=== PATIENT | female | born 1960 | race Caucasian/White ===

== ENCOUNTER → 2017-10-07 | Outpatient (CLI) | payer SELFPAY ==
[2017-10-07 18:10] LABS: BASOPHILS ABSOLUTE AUTO 0.04 K/mm3 (0.00-0.23); BASOPHILS PERCENT AUTO 1 % (0-2); EOSINOPHILS ABSOLUTE AUTO 0.31 K/mm3 (0.00-0.68); EOSINOPHILS PERCENT AUTO 5 % (0-6); Hematocrit 43.2 % (33.0-51.0); Hemoglobin 14.9 g/dL (11.5-16.0); IMMATURE GRAN ABSOLUTE AUTO 0.01 K/mm3 (0.00-0.10); IMMATURE GRAN PERCENT AUTO 0 % (0-1); LYMPHOCYTES ABSOLUTE AUTO 2.86 K/mm3 (0.84-5.20); LYMPHOCYTES PERCENT AUTO 49 % (21-46); MONOCYTES ABSOLUTE AUTO 0.46 K/mm3 (0.16-1.47); MONOCYTES PERCENT AUTO 8 % (4-13); Mean Corpuscular HGB 32.3 pg (26.0-34.0); Mean Corpuscular HGB Conc 34.5 g/dL (31.5-36.5); Mean Corpuscular Volume 94 fL (80-100); NEUTROPHILS ABSOLUTE AUTO 2.17 K/mm3 (1.96-9.15); NEUTROPHILS PERCENT AUTO 37 % (41-73); Platelet Count 212 K/mm3 (150-400); RDW Coefficient Variation 13.8 % (11.7-14.2); RDW Standard Deviation 47.4 fL (35.1-46.3); Red Blood Cell Count 4.62 M/mm3 (3.80-5.20); White Blood Cell Count 5.85 K/mm3 (4.00-11.30)
[2017-10-07 19:04] LABS: Alanine Aminotransfer (ALT/SGP 81 U/L (12-78); Albumin, Blood 3.7 g/dL (3.4-5.0); Albumin/Globulin Ratio 1.1 (0.8-1.8); Alk Phos 125 U/L (50-136); Anion Gap 10 mmol/L (6-16); Aspartate Aminotrans (AST/SGOT 51 U/L (12-37); Bilirubin, Total 0.3 mg/dL (0.1-1.0); Blood Urea Nitrogen 15 mg/dL (8-24); Bun/Creatinine Ratio 33.8 (12.0-20.0); CHOL/HDL RATIO 3.3; CO2, Blood 25 mmol/L (21-32); Calcium, Blood 9.4 mg/dL (8.5-10.1); Chloride, Blood 104 mmol/L (98-108); Cholesterol 226 mg/dL (50-200); Creatinine, Blood 0.44 mg/dL (0.40-1.00); Globulin, Blood 3.4 g/dL (2.2-4.0); Glomerular Filtration Rate >60 (60-); Glucose, Blood 91 mg/dL (70-99); HDL Cholesterol 69 mg/dL (>39); LDL/HDL RATIO 1.9; Low Density Lipoprotein Chol 129 mg/dL (0-110); Potassium, Blood 4.6 mmol/L (3.5-5.5); Sodium, Blood 139 mmol/L (136-145); Total Protein, Blood 7.1 g/dL (6.4-8.2); Triglycerides 141 mg/dL (30-160); Very Low Density Lipoprot Chol 28 mg/dL (6-32)
== END ==
LOC: LAB 10:47
PROVIDERS: Nurse Practitioner Adult Health
DX: I10 Essential (primary) hypertension (principal); R56.9 Unspecified convulsions
CPT/HCPCS: 80053; 80061; 80185; 85025

== ENCOUNTER → 2018-04-07 | Outpatient (CLI) | payer OTHER ==
[2018-04-07 18:03] LABS: BASOPHILS ABSOLUTE AUTO 0.06 K/mm3 (0.00-0.23); BASOPHILS PERCENT AUTO 1 % (0-2); EOSINOPHILS PERCENT AUTO 5 % (0-6); Hematocrit 44.7 % (33.0-51.0); Hemoglobin 14.9 g/dL (11.5-16.0); IMMATURE GRAN ABSOLUTE AUTO 0.03 K/mm3 (0.00-0.10); IMMATURE GRAN PERCENT AUTO 1 % (0-1); LYMPHOCYTES ABSOLUTE AUTO 2.49 K/mm3 (0.84-5.20); LYMPHOCYTES PERCENT AUTO 38 % (21-46); MONOCYTES ABSOLUTE AUTO 0.57 K/mm3 (0.16-1.47); MONOCYTES PERCENT AUTO 9 % (4-13); Mean Corpuscular HGB 31.5 pg (26.0-34.0); Mean Corpuscular HGB Conc 33.3 g/dL (31.5-36.5); Mean Corpuscular Volume 95 fL (80-100); Mean Platelet Volume 10.7 fL (9.1-12.4); NEUTROPHILS ABSOLUTE AUTO 3.06 K/mm3 (1.96-9.15); NEUTROPHILS PERCENT AUTO 47 % (41-73); Platelet Count 293 K/mm3 (150-400); RDW Coefficient Variation 14.4 % (11.7-14.2); RDW Standard Deviation 50.1 fL (35.1-46.3); Red Blood Cell Count 4.73 M/mm3 (3.80-5.20); White Blood Cell Count 6.51 K/mm3 (4.00-11.30)
[2018-04-07 18:54] LABS: Alanine Aminotransfer (ALT/SGP 33 U/L (12-78); Albumin, Blood 3.9 g/dL (3.4-5.0); Albumin/Globulin Ratio 1.2 (0.8-1.8); Alk Phos 119 U/L (50-136); Anion Gap 7 mmol/L (6-16); Aspartate Aminotrans (AST/SGOT 19 U/L (12-37); Bilirubin, Total 0.3 mg/dL (0.1-1.0); Blood Urea Nitrogen 15 mg/dL (8-24); Bun/Creatinine Ratio 29.1 (12.0-20.0); CHOL/HDL RATIO 2.5; CO2, Blood 28 mmol/L (21-32); Calcium, Blood 9.3 mg/dL (8.5-10.1); Chloride, Blood 106 mmol/L (98-108); Cholesterol 219 mg/dL (50-200); Creatinine, Blood 0.52 mg/dL (0.40-1.00); Free Thyroxine 0.72 ng/dL (0.70-1.60); Globulin, Blood 3.2 g/dL (2.2-4.0); Glomerular Filtration Rate >60 (60-); Glucose, Blood 102 mg/dL (70-99); HDL Cholesterol 86 mg/dL (>39); LDL/HDL RATIO 1.4; Low Density Lipoprotein Chol 120 mg/dL (0-110); Potassium, Blood 5.1 mmol/L (3.5-5.5); Sodium, Blood 141 mmol/L (136-145); Thyroid Stimulating Hormone 0.492 uIU/mL (0.360-4.800); Total Protein, Blood 7.1 g/dL (6.4-8.2); Triglycerides 65 mg/dL (30-160); Very Low Density Lipoprot Chol 13 mg/dL (6-32)
== END | disposition home or self-care (01) ==
LOC: LAB 17:49 → LAB SHORT 17:49
PROVIDERS: Nurse Practitioner Adult Health
DX: R56.9 Unspecified convulsions (principal); R94.5 Abnormal results of liver function studies; I10 Essential (primary) hypertension
CPT/HCPCS: 80053; 80061; 84439; 84443; 85025

== ENCOUNTER → 2019-06-03 | Outpatient (CLI) | payer OTHER ==
[~2019-06-03] MED LIST: MICROZIDE12.5 MG PO; PHENY100ER PO; Prinivil10 MG PO
[2019-06-03 18:34] LABS: BASOPHILS ABSOLUTE AUTO 0.06 K/mm3 (0.00-0.23); BASOPHILS PERCENT AUTO 1 % (0-2); EOSINOPHILS ABSOLUTE AUTO 0.22 K/mm3 (0.00-0.68); EOSINOPHILS PERCENT AUTO 3 % (0-6); Hematocrit 41.6 % (33.0-51.0); Hemoglobin 14.1 g/dL (11.5-16.0); IMMATURE GRAN ABSOLUTE AUTO 0.02 K/mm3 (0.00-0.10); IMMATURE GRAN PERCENT AUTO 0 % (0-1); LYMPHOCYTES ABSOLUTE AUTO 2.43 K/mm3 (0.84-5.20); LYMPHOCYTES PERCENT AUTO 35 % (21-46); MONOCYTES ABSOLUTE AUTO 0.51 K/mm3 (0.16-1.47); MONOCYTES PERCENT AUTO 7 % (4-13); Mean Corpuscular HGB 32.5 pg (26.0-34.0); Mean Corpuscular HGB Conc 33.9 g/dL (31.5-36.5); Mean Corpuscular Volume 96 fL (80-100); Mean Platelet Volume 10.4 fL (9.1-12.4); NEUTROPHILS ABSOLUTE AUTO 3.69 K/mm3 (1.96-9.15); NEUTROPHILS PERCENT AUTO 53 % (41-73); Platelet Count 394 K/mm3 (150-400); RDW Coefficient Variation 14.4 % (11.7-14.2); RDW Standard Deviation 49.9 fL (35.1-46.3); Red Blood Cell Count 4.34 M/mm3 (3.80-5.20); White Blood Cell Count 6.93 K/mm3 (4.00-11.30)
[2019-06-03 19:25] LABS: Alanine Aminotransfer (ALT/SGP 33 U/L (12-78); Albumin, Blood 3.8 g/dL (3.4-5.0); Albumin/Globulin Ratio 1.1 (0.8-1.8); Alk Phos 118 U/L (50-136); Anion Gap 4 mmol/L (6-16); Aspartate Aminotrans (AST/SGOT 22 U/L (12-37); Bilirubin, Total 0.3 mg/dL (0.1-1.0); Blood Urea Nitrogen 8 mg/dL (8-24); Bun/Creatinine Ratio 17.7 (12.0-20.0); CO2, Blood 29 mmol/L (21-32); Chloride, Blood 105 mmol/L (98-108); Creatinine, Blood 0.45 mg/dL (0.40-1.00); Dilantin (Phenytoin), Total 20.2 ug/mL (10.0-20.0); Globulin, Blood 3.5 g/dL (2.2-4.0); Glomerular Filtration Rate >60 (60-); Glucose, Blood 90 mg/dL (70-99); Sodium, Blood 138 mmol/L (136-145); Total Protein, Blood 7.3 g/dL (6.4-8.2)
== END | disposition home or self-care (01) ==
LOC: LAB SHORT 11:36 → LAB 11:36
PROVIDERS: Nurse Practitioner Family
DX: G40.909 Epilepsy, unspecified, not intractable, without status epilepticus (principal); I10 Essential (primary) hypertension
CPT/HCPCS: 80053; 80185; 85025

== ENCOUNTER 2019-07-15 11:34 | Day surgery (SDC) | payer OTHER ==
[~2019-07-15] VITALS: Ht 160 cm; Wt 65.7 kg
== END 2019-07-15 13:36 | disposition home or self-care (01) ==
LOC: ORSCSDS 11:34
PROVIDERS: Internal Medicine Gastroenterology
PROC: 0DBN8ZX Excision of Sigmoid Colon, Via Natural or Artificial Opening Endoscopic, Diagnostic (ICD-10-PCS; principal; 2019-07-15 13:15)
PROC: 0DBM8ZX Excision of Descending Colon, Via Natural or Artificial Opening Endoscopic, Diagnostic (ICD-10-PCS; principal; 2019-07-15 13:15)
PROC: 0D5K8ZZ Destruction of Ascending Colon, Via Natural or Artificial Opening Endoscopic (ICD-10-PCS; principal; 2019-07-15 13:15)
PROC: 0DBK8ZX Excision of Ascending Colon, Via Natural or Artificial Opening Endoscopic, Diagnostic (ICD-10-PCS; principal; 2019-07-15 13:15)
DX: R19.5 Other fecal abnormalities (principal); D12.2 Benign neoplasm of ascending colon; K63.5 Polyp of colon; K62.1 Rectal polyp; K57.30 Diverticulosis of large intestine without perforation or abscess without bleeding; Q27.33 Arteriovenous malformation of digestive system vessel; I10 Essential (primary) hypertension; F17.210 Nicotine dependence, cigarettes, uncomplicated; G40.409 Other generalized epilepsy and epileptic syndromes, not intractable, without status epilepticus; Z79.899 Other long term (current) drug therapy
CPT/HCPCS: 88305; J2704; J7120

== ENCOUNTER 2019-08-09 14:16 | Inpatient (IN) | payer OTHER ==
[~2019-08-09] VITALS: Ht 160 cm; Wt 65.2 kg
[2019-08-09 14:58] LABS: BASOPHILS ABSOLUTE AUTO 0.06 K/mm3 (0.00-0.23); BASOPHILS PERCENT AUTO 1 % (0-2); EOSINOPHILS ABSOLUTE AUTO 0.39 K/mm3 (0.00-0.68); EOSINOPHILS PERCENT AUTO 5 % (0-6); Hematocrit 44.6 % (33.0-51.0); Hemoglobin 15.3 g/dL (11.5-16.0); IMMATURE GRAN ABSOLUTE AUTO 0.04 K/mm3 (0.00-0.10); IMMATURE GRAN PERCENT AUTO 1 % (0-1); LYMPHOCYTES ABSOLUTE AUTO 2.29 K/mm3 (0.84-5.20); LYMPHOCYTES PERCENT AUTO 27 % (21-46); MONOCYTES ABSOLUTE AUTO 0.82 K/mm3 (0.16-1.47); MONOCYTES PERCENT AUTO 10 % (4-13); Mean Corpuscular HGB 32.6 pg (26.0-34.0); Mean Corpuscular HGB Conc 34.3 g/dL (31.5-36.5); Mean Corpuscular Volume 95 fL (80-100); NEUTROPHILS ABSOLUTE AUTO 5.03 K/mm3 (1.96-9.15); NEUTROPHILS PERCENT AUTO 58 % (41-73); Platelet Count 239 K/mm3 (150-400); RDW Coefficient Variation 13.3 % (11.7-14.2); RDW Standard Deviation 47.1 fL (35.1-46.3); White Blood Cell Count 8.63 K/mm3 (4.00-11.30)
[2019-08-09 15:16] LABS: Alanine Aminotransfer (ALT/SGP 32 U/L (12-78); Albumin, Blood 3.7 g/dL (3.4-5.0); Alk Phos 136 U/L (50-136); Anion Gap 5 mmol/L (6-16); Aspartate Aminotrans (AST/SGOT 19 U/L (12-37); Bilirubin, Total 0.3 mg/dL (0.1-1.0); Blood Urea Nitrogen 12 mg/dL (8-24); Bun/Creatinine Ratio 22.7 (12.0-20.0); CO2, Blood 29 mmol/L (21-32); Chloride, Blood 105 mmol/L (98-108); Creatinine, Blood 0.53 mg/dL (0.40-1.00); Ethanol (Alcohol), Blood, Med <3 mg/dL; Globulin, Blood 3.8 g/dL (2.2-4.0); Glomerular Filtration Rate >60 (60-); Glucose, Blood 116 mg/dL (70-99); Potassium, Blood 3.7 mmol/L (3.5-5.5); Sodium, Blood 139 mmol/L (136-145); Total Protein, Blood 7.5 g/dL (6.4-8.2)
--- NOTE | 2019-08-10 04:15 | NUR ---
SHIFT SUMMARY ED ADMIT @ 1930. PT WAS AT HOME AND FAMILY STARTED TO NOTICE FACIAL DROOPING AND SLURRED SPEECH SINCE SATURDAY. CT SHOWED PATCHY SUBACUTE INFARCTS BUT IT HAD BEEN TOO LONG FOR TPA, TREATING W/ASPIRIN. AOX3, STRUGGLES WITH TIME/DATE. LS CLEAR, DENIES SOB. NO C/O NAUSEA OR PAIN. NO SKIN ISSUES. L ARM AND LEG ARE WEAKER. L SIDE FACIAL DROOP. SPEECH SLURRED. 2 ASSIST TO BSC. TELE SR 80. R AC IS SL. HX OF EPILEPSY, LAST SEIZURE SOMETIME IN THE 'S. BEDALARM. BP 200/98 IN ED, PRN HYDRALAZINE GIVEN RIGHT BEFORE BRINGING HER TO THE FLOOR. 193/93 ON ADMISSION. RECHECKED AT 0100 AND BP WAS 132/95. PT SLEPT ALMOST THE WHOLE NIGHT.
[2019-08-10 04:48] LABS: CHOL/HDL RATIO 2.9; Cholesterol 227 mg/dL (50-200); HDL Cholesterol 79 mg/dL (>39); LDL/HDL RATIO 1.4; Low Density Lipoprotein Chol 113 mg/dL (0-110); Triglycerides 174 mg/dL (30-160); Very Low Density Lipoprot Chol 34 mg/dL (6-32)
--- NOTE | 2019-08-10 09:16 | NUR ---
Echocardiogram using 18.0ml of agitated saline contrast performed.
--- NOTE | 2019-08-10 18:27 | NUR ---
PT ALERT AND ORIENTED THIS SHIFT. PT CONTINUES TO HAVE LEFT SIDED WEAKNESS. PT FORGETS TO USE HER CALL LIGHT PERIODICALLY. PT HAD VISITORS IN THE ROOM FOR MUCH OF THIS SHIFT. PT CURRENTLY SITTING IN ROOM WATCHING TELEVISION.
--- NOTE | 2019-08-11 02:35 | NUR ---
Pt called SUPERVISOR [employer] to use the bathroom. When I arrived to the room, pt had to urinate very badly, but she sat up, I helped her to dangle her legs, I asked if she felt dizzy or unsteady, she replied, "no I feel ok", so I asked her if she could stand, she said, "yes, I can", so with some assistance from me she stood up, she was worried about the TELE monitor so I told her it would be ok to sit on the bed while she used the comode, she took a step and turned for the potty, she was slightly weak on her left side, but got to the bedside comode without difficulty, I noticed a spot of stool in her brief. I told her I would change her brief and wipe her bum when she was done. She urinated and wiped herself. She asked for some foam to wash her hands, so I retrieved her a squirt of foam hand report clerk. She washed her hands. I asked if the patient felt steady to stand for a moment or wanted to lay down for me to make sure her bum was clean, she wanted to stand up. So she started to stand, I used one wipe to wipe the stool smear, upon getting another wipe the patient began to pivot I went from her Right side to in front of her to help support her she pivoted herself towards the bed and slid down the side of the bed. She gently was lowered to the floor. I called for my RN Rosalina, but didn't know her last name so Brian wasn't helpful, I called for Emely the RN sitting outside the room on a computer and she came in to help, Rosalina also arrived to help with the patient. We put a gait belt on the patient, got her up and into bed. The patient stated that she was ok and nothing was hurt and we made sure there were no rodriguez, bumps, or bruises on the patient. I took vitals as a precaution.
--- NOTE | 2019-08-11 02:54 | NUR ---
WENT IN PT ROOM AND PT WAS SITTING ON THE GROUND WITH THE NON DESTRUCTIVE TESTER IN THE ROOM. ASKED WHAT HAPPENED AND NON DESTRUCTIVE TESTER STATED THE PT DID NOT FALL BUT SHE SAT ON THE FLOOR WHEN NON DESTRUCTIVE TESTER WAS TRYING TO WIPE HER AFTER USING THE BEDSIDE COMMODE. PT STATED SHE WAS OKAY. SKIN ASSESSMENT NEGATIVE. VS WERE CHECKED JUST IN CASE AND WERE WNL. I VERIFIED WITH NON DESTRUCTIVE TESTER THAT PT DID NOT FALL AND NOTIFIED ACCOUNTING PROFESSOR OF WHAT HAPPENED.
--- NOTE | 2019-08-11 05:37 | NUR ---
SHIFT SUMMARY NO ASSESSMENT CHANGES. NO C/O NAUSEA OR PAIN. L SIDE VERY WEAK. 1-2 ASSIST TO BSC. BED ALARM. TELE SR 88. R AC IV IS SL. SON DID COME VISIT PT FOR A LITTLE BIT LAST NIGHT. VSS ON RA. UNSURE OF DC PLAN AT THIS TIME.
[2019-08-11] MEDS ORDERED: ASPI81CH PO (15:33)
[2019-08-11] MEDS ORDERED: ATOR20 PO (15:34)
[2019-08-11] MEDS ORDERED: CLOP75 PO (15:35)
[2019-08-11] MEDS ORDERED: METO25 PO (15:36)
--- NOTE | 2019-08-11 16:30 | NUR ---
REPORT CALLED TO SUSAN DIAL RN. QUESTIONS/CONCERNS ANSWERED. PT TO BE TRANSPORTED AT 1630 VIA [facility].
== END 2019-08-11 16:55 | DRG 65 ==
LOC: ER 14:16 → MEDS 16:56
PROVIDERS: Physician Assistant; ADMIT Internal Medicine
DX: I63.9 Cerebral infarction, unspecified (principal); G81.94 Hemiplegia, unspecified affecting left nondominant side; I10 Essential (primary) hypertension; G40.909 Epilepsy, unspecified, not intractable, without status epilepticus; F17.200 Nicotine dependence, unspecified, uncomplicated
CPT/HCPCS: 36415; 70450; 80053; 80061; 85025; 90686; 93005; 93010; 93306; 93880; 96374; 97110; 97162; 97165; 97530; 97535; 99285-25; G0480; J0360; J1650

== ENCOUNTER → 2019-09-17 | Outpatient (CLI) | payer OTHER ==
[~2019-09-17] MED LIST changes: +ASPI81CH PO; +ATOR20 PO; +CLOP75 PO; +METO25 PO
[2019-09-17 19:34] LABS: BASOPHILS ABSOLUTE AUTO 0.06 K/mm3 (0.00-0.23); BASOPHILS PERCENT AUTO 1 % (0-2); EOSINOPHILS ABSOLUTE AUTO 0.28 K/mm3 (0.00-0.68); EOSINOPHILS PERCENT AUTO 4 % (0-6); Hemoglobin 13.9 g/dL (11.5-16.0); IMMATURE GRAN ABSOLUTE AUTO 0.02 K/mm3 (0.00-0.10); IMMATURE GRAN PERCENT AUTO 0 % (0-1); LYMPHOCYTES ABSOLUTE AUTO 1.87 K/mm3 (0.84-5.20); LYMPHOCYTES PERCENT AUTO 29 % (21-46); MONOCYTES ABSOLUTE AUTO 0.58 K/mm3 (0.16-1.47); MONOCYTES PERCENT AUTO 9 % (4-13); Mean Corpuscular HGB Conc 33.9 g/dL (31.5-36.5); Mean Corpuscular Volume 94 fL (80-100); NEUTROPHILS ABSOLUTE AUTO 3.55 K/mm3 (1.96-9.15); NEUTROPHILS PERCENT AUTO 56 % (41-73); Platelet Count 287 K/mm3 (150-400); RDW Coefficient Variation 12.9 % (11.7-14.2); RDW Standard Deviation 44.9 fL (35.1-46.3); Red Blood Cell Count 4.35 M/mm3 (3.80-5.20); White Blood Cell Count 6.36 K/mm3 (4.00-11.30)
[2019-09-17 20:07] LABS: Alanine Aminotransfer (ALT/SGP 34 U/L (12-78); Albumin, Blood 3.9 g/dL (3.4-5.0); Albumin/Globulin Ratio 1.1 (0.8-1.8); Alk Phos 150 U/L (50-136); Anion Gap 5 mmol/L (6-16); Aspartate Aminotrans (AST/SGOT 21 U/L (12-37); Bilirubin, Total 0.4 mg/dL (0.1-1.0); Blood Urea Nitrogen 19 mg/dL (8-24); Bun/Creatinine Ratio 53.8 (12.0-20.0); CHOL/HDL RATIO 2.2; CO2, Blood 29 mmol/L (21-32); Calcium, Blood 9.1 mg/dL (8.5-10.1); Chloride, Blood 104 mmol/L (98-108); Cholesterol 202 mg/dL (50-200); Creatinine, Blood 0.35 mg/dL (0.40-1.00); Globulin, Blood 3.4 g/dL (2.2-4.0); Glomerular Filtration Rate >60 (60-); Glucose, Blood 87 mg/dL (70-99); HDL Cholesterol 91 mg/dL (>39); Low Density Lipoprotein Chol 93 mg/dL (0-110); Potassium, Blood 4.3 mmol/L (3.5-5.5); Sodium, Blood 138 mmol/L (136-145); Total Protein, Blood 7.3 g/dL (6.4-8.2); Triglycerides 88 mg/dL (30-160); Very Low Density Lipoprot Chol 17 mg/dL (6-32)
== END ==
LOC: LAB 18:38 → LAB SHORT 18:38
PROVIDERS: Nurse Practitioner Family
DX: G40.909 Epilepsy, unspecified, not intractable, without status epilepticus (principal); I69.354 Hemiplegia and hemiparesis following cerebral infarction affecting left non-dominant side
CPT/HCPCS: 80053; 80061; 80185; 80186; 85025

== ENCOUNTER → 2020-01-19 | Outpatient (CLI) | payer OTHER ==
[2020-01-19 19:23] LABS: BASOPHILS ABSOLUTE AUTO 0.04 K/mm3 (0.00-0.23); BASOPHILS PERCENT AUTO 1 % (0-2); EOSINOPHILS ABSOLUTE AUTO 0.37 K/mm3 (0.00-0.68); EOSINOPHILS PERCENT AUTO 4 % (0-6); Hematocrit 39.9 % (33.0-51.0); Hemoglobin 13.2 g/dL (11.5-16.0); IMMATURE GRAN ABSOLUTE AUTO 0.04 K/mm3 (0.00-0.10); IMMATURE GRAN PERCENT AUTO 1 % (0-1); LYMPHOCYTES ABSOLUTE AUTO 2.64 K/mm3 (0.84-5.20); LYMPHOCYTES PERCENT AUTO 31 % (21-46); MONOCYTES ABSOLUTE AUTO 0.61 K/mm3 (0.16-1.47); MONOCYTES PERCENT AUTO 7 % (4-13); Mean Corpuscular HGB 31.7 pg (26.0-34.0); Mean Corpuscular HGB Conc 33.1 g/dL (31.5-36.5); Mean Corpuscular Volume 96 fL (80-100); Mean Platelet Volume 10.6 fL (9.1-12.4); NEUTROPHILS ABSOLUTE AUTO 4.82 K/mm3 (1.96-9.15); NEUTROPHILS PERCENT AUTO 57 % (41-73); Platelet Count 295 K/mm3 (150-400); RDW Coefficient Variation 13.2 % (11.7-14.2); RDW Standard Deviation 46.5 fL (35.1-46.3); Red Blood Cell Count 4.17 M/mm3 (3.80-5.20); White Blood Cell Count 8.52 K/mm3 (4.00-11.30)
[2020-01-19 20:28] LABS: Alanine Aminotransfer (ALT/SGP 29 U/L (12-78); Albumin/Globulin Ratio 1.1 (0.8-1.8); Alk Phos 120 U/L (50-136); Anion Gap 7 mmol/L (6-16); Aspartate Aminotrans (AST/SGOT 19 U/L (12-37); Bilirubin, Total 0.2 mg/dL (0.1-1.0); Blood Urea Nitrogen 28 mg/dL (8-24); CO2, Blood 27 mmol/L (21-32); Calcium, Blood 8.8 mg/dL (8.5-10.1); Chloride, Blood 104 mmol/L (98-108); Creatinine, Blood 0.67 mg/dL (0.40-1.00); Globulin, Blood 3.5 g/dL (2.2-4.0); Glomerular Filtration Rate >60 (60-); Glucose, Blood 82 mg/dL (70-99); Potassium, Blood 4.4 mmol/L (3.5-5.5); Sodium, Blood 138 mmol/L (136-145); Total Protein, Blood 7.5 g/dL (6.4-8.2)
== END | disposition home or self-care (01) ==
LOC: LAB 17:43 → LAB SHORT 17:43
PROVIDERS: Nurse Practitioner Family
DX: I63.9 Cerebral infarction, unspecified (principal)
CPT/HCPCS: 80053; 80185; 85025

== ENCOUNTER → 2020-03-03 | Outpatient (CLI) | payer OTHER | END | disposition home or self-care (01) | LOC: LAB SHORT 11:45 → LAB 11:45 | PROVIDERS: Nurse Practitioner Family | DX: G40.909 Epilepsy, unspecified, not intractable, without status epilepticus (principal) | CPT/HCPCS: 80185; 80186 ==

== ENCOUNTER 2022-12-12 08:59 | Day surgery (SDC) | payer OTHER ==
[~2022-12-12] VITALS: Ht 160 cm; Wt 65.2 kg
--- NOTE | 2022-12-12 10:56 | NUR ---
History, Chart, Medications and Allergies reviewed before start of procedure.Lungs clear T/O to Auscultation.PT SDTATES BM'S CLEAR. 4 ATTEMPTS FOR PERIPHERAL IV PLACEMENT 2 ON EACH ARE. JULIAN SEVILLA RN PLACE A PERIPHERAL IV IN MAGNUS WITH US GUIDANCE. PATIENT FELIPA EVERYTHING VERY WELL
--- NOTE | 2022-12-12 11:05 | NUR ---
12/12/22 [email or web address] Dilma Weeks HISTORY, CHART, MEDICATIONS AND ALLERGIES REVIEWED BEFORE START OF PROCEDURE. PATIENT CONFIRMS NPO STATUS AND AGREES WITH SCHEDULED PROCEDURE. 3-LEAD EKG REVIEWED WITH PHYSICIAN PRIOR TO START OF PROCEDURE. MONITOR INTACT WITH CONTINUOUS PULSE OXIMETRY,CAPNOGRAPHY, 3-LEAD EKG, INTERMITTENT BP. SUPPLEMENTAL O2 TO BE TITRATED THROUGHOUT PROCEDURE TO MAINTAIN O2 SATURATION ABOVE 90%. PATIENT DETERMINED TO BE ASA APPROPRIATE FOR PROPOFOL SEDATION PRIOR TO START OF PROCEDURE BY .
--- NOTE | 2022-12-12 12:02 | NUR ---
REPORT RECEIVED FROM JACKIE GARDNER RN. VSS. PT DENIES PAIN OR DISCOMFORT AT THIS TIME. PT ABLE TO REPOSITION SELF IN BED. PT REQUESTING PO FLUIDS AND TOLERATING THEM WELL.
--- NOTE | 2022-12-12 12:25 | NUR ---
Patient up to Ambulate independently. Gait steady AND CONSISTENT WITH PT BASELINE. VSS. Discharge instructions reviewed with patient. Patient verbalizes understanding. Copy given to patient to take home. Patient States Post-Procedure ride home has been arranged. Discharged via wheelchair to private car for ride home. PT BELONGINGS RETURNED TO PT.
== END 2022-12-12 22:37 | disposition home or self-care (01) ==
LOC: ORSCMMR 08:59 → ORD 09:30 → ORSCMMR 22:37
PROVIDERS: Internal Medicine Gastroenterology
PROC: 0DBN8ZX Excision of Sigmoid Colon, Via Natural or Artificial Opening Endoscopic, Diagnostic (ICD-10-PCS; principal; 2022-12-12 09:30)
PROC: 0DBL8ZX Excision of Transverse Colon, Via Natural or Artificial Opening Endoscopic, Diagnostic (ICD-10-PCS; principal; 2022-12-12 09:30)
DX: Z12.11 Encounter for screening for malignant neoplasm of colon (principal); Z86.010 Personal history of colon polyps; K63.5 Polyp of colon; K64.8 Other hemorrhoids; I69.354 Hemiplegia and hemiparesis following cerebral infarction affecting left non-dominant side; G40.909 Epilepsy, unspecified, not intractable, without status epilepticus; I10 Essential (primary) hypertension; Z79.02 Long term (current) use of antithrombotics/antiplatelets; Z79.899 Other long term (current) drug therapy; F17.210 Nicotine dependence, cigarettes, uncomplicated
CPT/HCPCS: 88305; J2704; J7120

== ENCOUNTER → 2024-04-20 | Outpatient (CLI) | payer OTHER ==
[2024-04-20 17:19] LABS: BASOPHILS ABSOLUTE AUTO 0.05 K/mm3 (0.00-0.23); BASOPHILS PERCENT AUTO 1 % (0-2); EOSINOPHILS ABSOLUTE AUTO 0.31 K/mm3 (0.00-0.68); EOSINOPHILS PERCENT AUTO 5 % (0-6); Hematocrit 40.2 % (33.0-51.0); Hemoglobin 14.1 g/dL (11.5-16.0); IMMATURE GRAN ABSOLUTE AUTO 0.02 K/mm3 (0.00-0.10); IMMATURE GRAN PERCENT AUTO 0 % (0-1); LYMPHOCYTES ABSOLUTE AUTO 2.81 K/mm3 (0.84-5.20); LYMPHOCYTES PERCENT AUTO 42 % (21-46); MONOCYTES ABSOLUTE AUTO 0.57 K/mm3 (0.16-1.47); MONOCYTES PERCENT AUTO 9 % (4-13); Mean Corpuscular HGB 33.3 pg (26.0-34.0); Mean Corpuscular HGB Conc 35.1 g/dL (31.5-36.5); Mean Corpuscular Volume 95 fL (80-100); Mean Platelet Volume 10.1 fL (9.1-12.4); NEUTROPHILS PERCENT AUTO 43 % (41-73); Platelet Count 254 K/mm3 (150-400); RDW Coefficient Variation 13.9 % (11.7-14.2); RDW Standard Deviation 48.4 fL (35.1-46.3); Red Blood Cell Count 4.23 M/mm3 (3.80-5.20); White Blood Cell Count 6.66 K/mm3 (4.00-11.30)
[2024-04-20 17:25] LABS: Alanine Aminotransfer (ALT/SGP 30 U/L (12-78); Albumin/Globulin Ratio 1.1 (0.8-1.8); Alk Phos 153 U/L (50-136); Anion Gap 10 mmol/L (3-11); Aspartate Aminotrans (AST/SGOT 17 U/L (12-37); Bilirubin, Total 0.3 mg/dL (0.1-1.0); Blood Urea Nitrogen 18 mg/dL (8-24); Bun/Creatinine Ratio 20.7 (12.0-20.0); CHOL/HDL RATIO 2.4; CO2, Blood 27 mmol/L (21-32); Calcium, Blood 8.6 mg/dL (8.5-10.1); Chloride, Blood 108 mmol/L (98-108); Cholesterol 208 mg/dL (50-200); Creatinine, Blood 0.87 mg/dL (0.40-1.00); Globulin, Blood 3.5 g/dL (2.2-4.0); Glomerular Filtration Rate 75 (60-); Glucose, Blood 95 mg/dL (70-99); HDL Cholesterol 87 mg/dL (>39); LDL/HDL RATIO 1.1; Low Density Lipoprotein Chol 91 mg/dL (0-110); Potassium, Blood 4.8 mmol/L (3.5-5.5); Sodium, Blood 140 mmol/L (136-145); Total Protein, Blood 7.5 g/dL (6.4-8.2); Triglycerides 148 mg/dL (30-160); Very Low Density Lipoprot Chol 29 mg/dL (6-32)
[2024-04-20 17:31] LABS: Thyroid Stimulating Hormone 0.548 uIU/mL (0.360-4.800)
== END | disposition home or self-care (01) ==
LOC: LAB SHORT 15:58 → LAB 15:58
PROVIDERS: Nurse Practitioner Family
DX: E78.2 Mixed hyperlipidemia (principal); E55.9 Vitamin D deficiency, unspecified; I10 Essential (primary) hypertension; G40.909 Epilepsy, unspecified, not intractable, without status epilepticus
CPT/HCPCS: 80053; 80061; 82306; 84443; 85025

== ENCOUNTER → 2025-05-18 | Outpatient (CLI) | payer OTHER | END | disposition home or self-care (01) | LOC: LAB SHORT 16:06 → LAB 16:06 | PROVIDERS: Nurse Practitioner Family | DX: G40.909 Epilepsy, unspecified, not intractable, without status epilepticus (principal) | CPT/HCPCS: 80185; 80186 ==